=== PATIENT | male | born 1955 | race African-American/Black ===

== ENCOUNTER 2020-02-29 11:24 | Outpatient (CLI) | payer OTHER ==
--- NOTE | 2020-02-29 12:34 | XRay Report ---
BILATERAL FOREARM 4 VIEWS INDICATION / CLINICAL INFORMATION: PAIN IN RIGHT AND LEFT FOREARM COMPARISON: None available. FINDINGS: BONES and JOINT(S): No acute fracture or subluxation. No significant arthritis. SOFT TISSUES: No significant abnormality. ADDITIONAL FINDINGS: None. IMPRESSION: 1. No acute findings. Signer Name: Colby Parham MD Signed: 02/29/2020 12:30 PM Workstation Name: [id number]
== END 2020-02-29 11:25 | disposition home or self-care (01) ==
LOC: XRAY 11:24
PROVIDERS: ATTEND Orthopaedic Surgery
DX: M79.631 Pain in right forearm (principal); M79.632 Pain in left forearm